=== PATIENT | female | born 1990 | race African-American/Black ===

== ENCOUNTER 2016-09-21 10:07 | Emergency (ER) | payer OTHER ==
[~2016-09-21] VITALS: Ht 165.1 cm; Wt 66.0 kg
[2016-09-21 10:22] VITALS: BP 120/55
== END 2016-09-21 17:27 | disposition left against medical advice (07) ==
LOC: ER 17:14
DX: Z53.21 Procedure and treatment not carried out due to patient leaving prior to being seen by health care provider (principal)